=== PATIENT | female | born 1970 | race Caucasian/White ===

== ENCOUNTER → 2018-09-14 10:30 | Outpatient (CLI) | payer OTHER, SELFPAY ==
--- NOTE | 2018-09-14 | BRBX_PTH ---
PATIENT: MONAE PLATT LOC: [facility] U#:[id number] AGE/SX: 54/F ROOM: RE09/14/[address]: Dr. Felicia Gilliam MD : 1970 BED: DIS: SPEC #: [id number] RECD: 09/14/18 12:43 STATUS: PRATEEK RENguyen #: [id number] JAMIE: 09/14/18 00:[address]: Felicia Gilliam DEPT: SURGICAL PATHOLOGY RECD BY: Herson Salazar ENTERED: 09/14/18 12:43 SP TYPE: BREAST BX OTHR DR: Dr. Dick Capellan MD Tissues: Right breast, NOS Procedures: Surgery Specimen Level IV HEADER OPERATION: Right stereotactic breast biopsy PRE-OP DIAGNOSIS: Right breast density 4 o'clock position TISSUE SUBMITTED: Right breast core tissue ISCHEMIC TIME: 1 minute FIXATION TIME: 56.5 hours MICROSCOPIC DIAGNOSIS Right breast, stereotactic core biopsy: Mild fibrocystic change. Focal intraductal hyperplasia without atypia. No evidence of malignancy. AM:[place] 09/17/18 MICROSCOPIC DESCRIPTION Slides are reviewed. GROSS DESCRIPTION Received in fixative is one container labeled with the patient's name and designated right breast density 4 o'clock position, core tissue. The specimen consists of multiple irregular fragments of her-yellow soft fatty tissue that in aggregate measure 2.5 x 1.5 x 0.6 cm. The specimen is totally submitted in two cassettes. / CE:[place] 09/14/18 TC:5 CPT: 67371
--- NOTE | 2018-09-14 14:23 | OP.PCM_ITS ---
Report of Operation Date of Procedure: 09/14/18 Pre-Operative Diagnosis: abnormal right breast mammograms Post-Operative Diagnosis: same Surgery/Procedure Performed:: right stereotactic breast biopsy. Description of Surgical Findings:: lesion in the right lower inner aspect of breast Type of Anesthesia:: Local - 1% xylocaine Specimen's removed: right breast tissue Estimated Blood Loss (mL): < 1 Description of Procedure: After informed consent was given, the patient was brought into the breast biopsy suite. Appropriate time out protocol was followed. She was then placed in the prone position on the stereotactic biopsy table. The patient?s right breast was then placed at the opening at the head of the table. A bus driver/monitor compression mammogram was then obtained in the medial view. However, the lesion could not be identified adequately. Therefore, a bus driver/monitor mammogram was obtained in the CC view. The suspicious radiological lesion was then identified. Stereo pictures of the lesion were then taken for XYZ coordinates. The Mammotome biopsy stylus was then positioned where it would be entering into the patient?s breast. The skin at this site was then cleansed with a surgical skin preparation. The skin and subcutaneous tissues at this site were then infiltrated with 1% xylocaine. A small skin incision was made with an 11 blade scalpel. The biopsy stylus was then positioned into the patient?s breast at the proper coordinates of depth. Using the Mammotome vacuum-assist device, several core samples of breast tissue were obtained. A hemostatic marker clip was then placed into the biopsy cavity and a bus driver/monitor film revealed that it was properly deployed. The patient was then placed in the supine position and pressure was applied to the breast until no active bleeding was noted. Steristrips were applied to reapproximate the skin. A unilateral mammogram in the CC and MLO view were then taken which revealed that the marker clip was in the same area as the previous suspicious lesion. The patient tolerated the procedure well and was discharged from the breast biopsy suite in good condition. - Complications none noted
== END ==
PROVIDERS: Family Provider Family Medicine; PCP Family Medicine; Referring Provider Surgery; Visit Provider Surgery
DX: N60.91 Unspecified benign mammary dysplasia of right breast (principal); R92.2 Inconclusive mammogram
CPT/HCPCS: 19081; 88305; J7050; A4648